=== PATIENT | male | born 1985 | race Caucasian/White ===

== ENCOUNTER 2022-10-22 14:30 | Emergency (ER) | payer BC, SELFPAY ==
[2022-10-22 14:36] VITALS: BP 145/95; PULSE 79; RESP 18; TEMP 35.7; O2SAT 98; BMI 38.5
--- NOTE | 2022-10-22 14:45 | CRLHL7_ITS ---
For Patients: As a result of the Century Cures Act, medical imaging exams and procedure reports are released immediately into your electronic medical record. You may view this report before your referring provider. If you have questions, please contact your health care provider. Indication: Injury. Technique: Three views right hand. Comparison: None. Findings/Impression: No acute displaced fracture. Dorsal dislocation of the distal 4th phalanx on the middle phalanx. Mild soft tissue swelling. Joint spaces are otherwise maintained. Bony mineralization is age appropriate. Dictated by Thom Flores MD @ 10/22/2022 3:33:18 PM (Electronically Signed)
--- NOTE | 2022-10-22 14:54 | ED_ITS ---
HPI - General Adult General Time Seen by Provider: 14:54 Date Seen: 10/22/22 Chief complaint: Fall/Minor Trauma Stated complaint: Finger Injury/Fall From Ladder Time Seen by Provider: 10/22/22 14:31 Source: patient Mode of arrival: ambulatory Limitations: no limitations History of Present Illness HPI narrative: Patient is a 37 year white male who was working doing drywall with a ladder, the ladder gave way and he fell about 7 ft injuring his right ring finger over the D IP feels that might be dislocated he has got a slight scrape over his PIP joint dorsally. He denies loss conscious, neck pain, head pain, back pain, he is ambulatory without difficulty. He reports a small scrape on his left moya he has a small scrape on his right forehead but does not have a headache, no neck pain as mention. He is able to move his hand fairly fully on the right but does have some limitation with the 4th finger. No pelvic pain patient's balance is good, no nausea. Is uncertain of last tetanus Related Data Allergies Allergy/AdvReac Type Severity Reaction Status Date / Time No Known Drug Allergies Allergy Verified 10/22/22 14:36 Review of Systems Status of ROS: Reports: 6 or more systems reviewed and unremarkable except as noted in History and below [facility] Social History Smoking Status: Current every day smoker Do you use any of these nicotine containing products: E-Cigarettes and Vaping Products Second hand tobacco smoke exposure: No How often do you have a drink containing alcohol: 2-4 times a month How many standard drinks containing alcohol do you have on a typical day: 1 or 2 How often do you have six or more drinks on one occasion: Never AUDIT-C Alcohol total score: 2 Non-prescribed substance use: denies use service: Yes Exam Narrative: Exam Narrative: Objective: Vital signs look unremarkable and slightly elevated blood pressure In general patient apparent distress he is alert or x3 He is ambulatory without difficulty Discussed small scrape over his right forehead but no deep wound no palpable step-off rest of HEENT unremarkable pupils aggression light extraocular moves intact Neck is supple Back exam unremarkable Abdomen benign soft nontender Pelvis stable patient is ambulatory lower extremities show normal strength sensation he has got small scrape over the anterior moya on the left but no marked open wound. Extremities he has got a small abrasion over the right dorsal PIP has some feeling of mild tenderness over his D IP and mild step-off dorsally consistent with perhaps mildly subluxed or dislocated. Const: Vital Signs, click to edit/add: Vital Signs - 24 hr 10/22/22 14:36 Temperature 96.3 F L Pulse Rate [Pulse Oximeter] 79 Respiratory Rate 18 Blood Pressure [Le ft Upper Arm] 145/95 H Pulse Oximetry 98 Oxygen Delivery Me thod Room Air Course Vital Signs Vital signs: Initial Vital Signs Temperature 96.3 F L 10/22/22 14:36 Temperature Source Temporal Artery Scan 10/22/22 14:36 Pulse Rate 79 10/22/22 14:36 Pulse Rhythm Regular 10/22/22 14:36 Respiratory Rate 18 10/22/22 14:36 Blood Pressure 145/95 H 10/22/22 14:36 Blood Pressure Mean 111 H 10/22/22 14:36 Blood Pressure Position Sitting 10/22/22 14:36 Pulse Oximetry 98 10/22/22 14:36 Oxygen Delivery Method Room Air 10/22/22 14:36 Vital Signs Temperature 96.3 F L 10/22/22 14:36 Pulse Rate 79 10/22/22 14:36 Respiratory Rate 18 10/22/22 14:36 Blood Pressure 145/95 H 10/22/22 14:36 Pulse Oximetry 98 10/22/22 14:36 Oxygen Delivery Method Room Air 10/22/22 14:36 Temperature 96.3 F L 10/22/22 14:36 Pulse Rate 79 10/22/22 14:36 Respiratory Rate 18 10/22/22 14:36 Blood Pressure 145/95 H 10/22/22 14:36 Pulse Oximetry 98 10/22/22 14:36 Oxygen Delivery Method Room Air 10/22/22 14:36 Medical Decision Making MDM Narrative Medical decision making narrative: [age] year white male with a fall from a ladder with right hand injury, mild skin abrasion to the right forehead and left moya. No obvious abdominal chest or back trauma. patient has a abrasion on his right PIP dorsally of his 4th finger with questionable dislocation of the D IP. Will check an x-ray of his hand. Will given updated tetanus shot. In the form of a Tdap. Will soak his right hand in sterile solution. Disposition pending x-ray findings. Addendum: The patient has a dislocation is D IP, with informed consent the patient allowed me to gently relocate his distal dislocation. He tolerated this well he had full range of motion of the finger. He declined additional follow- up imaging as he felt he was back in place and I would agree with that. He is also up-to-date on his tetanus will not need 1 updated today. Will soak his hand to make sure these are just abrasions around his D IP and 4th finger and disposition pending the look of these abrasions Discharge Plan Discharge Clinical Impression: Finger injury, Fall, Dislocation, finger Patient Disposition: Home, Self-Care Condition: Improved Instructions: Finger Dislocation (ED) Additional Instructions: Rest, light activity today, Tylenol or Advil as needed, gentle use of the right hand for the next couple of days. Keep the abrasions covered with bacitracin and a bandage. Soak couple times a day in soapy water. Return as needed. Activity Level: Light activity Discharge Diet: Regular Stand Alone Forms: [employer] Info Instructions
--- NOTE | 2022-10-22 15:06 | ED.NURSE ---
Pt right hand soaking in hibiclens.
== END 2022-10-22 15:54 | disposition home or self-care (01) ==
PROVIDERS: Emergency Provider Family Medicine
DX: S63.250A Unspecified dislocation of right index finger, initial encounter (principal); W11.XXXA Fall on and from ladder, initial encounter
CPT/HCPCS: 73130; 90471; 99283; 99284

== ENCOUNTER 2023-05-25 07:16 | Outpatient (CLI) | payer BC, SELFPAY | END 2023-05-25 07:17 | disposition home or self-care (01) | LOC: NFLDREF 05-27 10:37 | PROVIDERS: Visit Provider Physician Assistant | DX: Z31.69 Encounter for other general counseling and advice on procreation (principal) | CPT/HCPCS: 89322 ==

== ENCOUNTER 2023-10-07 10:00 | Outpatient (CLI) | payer BC, SELFPAY | END 2023-10-07 10:01 | disposition home or self-care (01) | LOC: NFLDREF 10-09 11:52 | PROVIDERS: Visit Provider Physician Assistant | DX: R86.8 Other abnormal findings in specimens from male genital organs (principal) | CPT/HCPCS: 89322 ==